=== PATIENT | male | born 1965 ===

== ENCOUNTER 2017-06-19 06:43 | Inpatient (IN) ==
[2017-06-19] MEDS ORDERED: SODIUM CHLORIDE 0.9% 1,000 ML IV PRN (07:10)
[2017-06-19 09:03] LABS: Basophils % 0.2 % (0.0-0.8); Eosinophils # 0.1 10*3/uL (0.0-0.87); Hematocrit 16.5 VOL% (42.0-52.0); Immature Granulocytes % 0.8 %; Lymphocytes # 1.2 10*3/uL (1.4-4.0); Lymphocytes % 10.5 % (21.2-54.2); Mean Corpuscular HGB Conc 31.5 GM/DL (32-36); Mean Corpuscular Hemoglobin 29 PG (27-34); Mean Corpuscular Volume 92.7 FL (87-102); Mean Platelet Volume 9.6 FL (9.6-12.0); Monocytes # 1.1 10*3/uL (0.11-0.8); Monocytes % 9.5 % (1.7-12.7); Neutrophils # 9.2 10*3/uL (1.4-7.4); Platelet Count 455 T/CUMM (130-400); Red Blood Count 1.78 MC/CUMM (3.8-5.5); Red Cell Distribution Width 14.6 % (9.3-17.3); White Blood Count 11.8 T/CUMM (4-12)
[2017-06-19 09:13] LABS: Hemoglobin 5.2 GM/DL (14.0-18.0)
[2017-06-19 09:43] LABS: Alanine Aminotransferase 96 U/L (16-61); Albumin 2.5 G/DL (3.4-5.0); Alkaline Phosphatase 143 U/L (45-117); Aspartate Amino Transferase 33 U/L (0-37); Bilirubin,Total < 0.39 MG/DL (0.2-1.0); Blood Urea Nitrogen 49 MG/DL (7-18); Calcium 7.6 MG/DL (8.5-10.1); Glucose 169 MG/DL (74-106); Sodium 136 MMOL/L (136-145); Total Protein 6.4 G/DL (6.4-8.3)
[2017-06-20] MEDS ORDERED: DEXTROSE 50% 25 GM/50 ML VIAL IV PRN (07:42)
[2017-06-20] MEDS ORDERED: GLUCAGON 1 MG VIAL IM PRN (07:42)
[2017-06-20] MEDS ORDERED: GLIMEPIRIDE 4 MG TABLET PO SCH (08:00)
[2017-06-20 08:15] LABS: Basophils % 0.4 % (0.0-0.8); Eosinophils # 0.2 10*3/uL (0.0-0.87); Eosinophils % 2.1 % (0.00-10.9); Hematocrit 27.2 VOL% (42.0-52.0); Immature Granulocytes Absolute 0.11 #; Lymphocytes % 9.4 % (21.2-54.2); Mean Corpuscular Hemoglobin 29 PG (27-34); Mean Corpuscular Volume 91.3 FL (87-102); Mean Platelet Volume 9.5 FL (9.6-12.0); Monocytes # 1.2 10*3/uL (0.11-0.8); Monocytes % 10.8 % (1.7-12.7); Neutrophils # 8.4 10*3/uL (1.4-7.4); Neutrophils % 76.3 % (38.7-73.9); Red Cell Distribution Width 14.5 % (9.3-17.3)
[2017-06-20 08:16] LABS: Red Blood Count 2.98 MC/CUMM (3.8-5.5)
[2017-06-20 08:17] LABS: Hemoglobin 8.7 GM/DL (14.0-18.0); Platelet Count 553 T/CUMM (130-400)
[2017-06-20 08:37] LABS: Albumin 2.7 G/DL (3.4-5.0); Bilirubin,Total 0.6 MG/DL (0.2-1.0); Calcium 8.2 MG/DL (8.5-10.1); Osmolality,Calculated 283.7 MOS/KG (273-304); Potassium 5.5 MMOL/L (3.5-5.1)
[2017-06-20] MEDS ORDERED: LIDOCAINE 1% 5 ML VIAL ONE (10:30)
[2017-06-20] MEDS ORDERED: PROPOFOL 200 MG/20 ML VIAL IV ONE (10:30)
[2017-06-20] MEDS: BISACODYL 5 MG TABLET PO SCH ×2 (10:49→18:02)
[2017-06-20] MEDS: INSULIN REGULAR 100 UNIT/ML SUBCUT SCH ×4 (10:50→20:51)
[2017-06-20] MEDS ORDERED: POLYETHYLENE GLYCOL 3350/ELECTROLYTES 4,000 ML BOTTLE PO ONE (18:00)
[2017-06-20] MEDS ORDERED: MAGNESIUM CITRATE 300 ML BOTTLE PO ONE (21:00)
[2017-06-21] MEDS: BISACODYL 5 MG TABLET PO SCH (01:46)
[2017-06-21 04:14] LABS: Basophils % 0.2 % (0.0-0.8); Eosinophils # 0.3 10*3/uL (0.0-0.87); Eosinophils % 2.3 % (0.00-10.9); Hematocrit 25.7 VOL% (42.0-52.0); Hemoglobin 8.3 GM/DL (14.0-18.0); Immature Granulocytes % 0.8 %; Immature Granulocytes Absolute 0.09 #; Lymphocytes # 1.2 10*3/uL (1.4-4.0); Lymphocytes % 10.3 % (21.2-54.2); Mean Corpuscular HGB Conc 32.3 GM/DL (32-36); Mean Corpuscular Hemoglobin 29 PG (27-34); Mean Corpuscular Volume 90.2 FL (87-102); Mean Platelet Volume 9.4 FL (9.6-12.0); Monocytes # 1.3 10*3/uL (0.11-0.8); Monocytes % 11.5 % (1.7-12.7); Neutrophils # 8.6 10*3/uL (1.4-7.4); Neutrophils % 74.9 % (38.7-73.9); Platelet Count 568 T/CUMM (130-400); Red Blood Count 2.85 MC/CUMM (3.8-5.5); Red Cell Distribution Width 14.1 % (9.3-17.3); White Blood Count 11.4 T/CUMM (4-12)
[2017-06-21 04:36] LABS: Albumin 2.6 G/DL (3.4-5.0); Bilirubin,Total 0.6 MG/DL (0.2-1.0); Calcium 7.6 MG/DL (8.5-10.1); Osmolality,Calculated 283.5 MOS/KG (273-304); Potassium 4.5 MMOL/L (3.5-5.1); Total Protein 6.5 G/DL (6.4-8.3)
[2017-06-21] MEDS: INSULIN REGULAR 100 UNIT/ML SUBCUT SCH ×4 (09:53→21:10)
[2017-06-21] MEDS ORDERED: LIDOCAINE 1% 5 ML VIAL ONE (12:00)
[2017-06-21] MEDS ORDERED: PROPOFOL 200 MG/20 ML VIAL IV ONE (12:00)
[2017-06-21 12:01] LABS: % Iron Saturation 8.3 % (18-50); Ferritin 622.9 ng/ml (26-388); Thyroid Stimulating Hormone 1.4 uIU/ml (0.358-3.74); Total Protein 6.2 G/DL (6.4-8.3)
[2017-06-21 14:12] LABS: Folate 18.9 NG/ML (5.4-24.0); Vitamin B12 308 PG/ML (211-911)
[2017-06-22 07:36] LABS: Total Protein (Chem) 6.2 G/DL (6.4-8.3)
[2017-06-22 07:50] LABS: Basophils % 0.3 % (0.0-0.8); Eosinophils # 0.3 10*3/uL (0.0-0.87); Eosinophils % 2.8 % (0.00-10.9); Hematocrit 23.8 VOL% (42.0-52.0); Immature Granulocytes % 0.7 %; Immature Granulocytes Absolute 0.07 #; Lymphocytes # 1.1 10*3/uL (1.4-4.0); Lymphocytes % 11.4 % (21.2-54.2); Mean Corpuscular HGB Conc 33.6 GM/DL (32-36); Mean Corpuscular Hemoglobin 29 PG (27-34); Mean Corpuscular Volume 87.2 FL (87-102); Monocytes # 1.2 10*3/uL (0.11-0.8); Monocytes % 11.7 % (1.7-12.7); Neutrophils # 7.3 10*3/uL (1.4-7.4); Neutrophils % 73.1 % (38.7-73.9); Platelet Count 588 T/CUMM (130-400); Red Blood Count 2.73 MC/CUMM (3.8-5.5); Red Cell Distribution Width 14.4 % (9.3-17.3)
[2017-06-22 08:08] LABS: Albumin 2.4 G/DL (3.4-5.0); Bilirubin,Total 0.7 MG/DL (0.2-1.0); Calcium 7.8 MG/DL (8.5-10.1); Osmolality,Calculated 284.4 MOS/KG (273-304); Potassium 4.5 MMOL/L (3.5-5.1)
[2017-06-22] MEDS: INSULIN REGULAR 100 UNIT/ML SUBCUT SCH ×2 (09:06→17:26)
[2017-06-22 10:08] LABS: Hemoglobin A1 (Alkaline) 97.2 % (96.5-98.5); Hemoglobin A2 (Alkaline) 2.8 % (1.5-3.5)
[2017-06-22 10:29] LABS: Albumin (SPE) Rel % 48.6 %; Alpha 1 (SPE) 0.4 G/DL (0.1-0.4); Alpha 2 (SPE) 0.7 G/DL (0.4-1.0); Beta (SPE) 0.8 G/DL (0.5-1.1); Beta (SPE) Rel % 12.5 %; Gamma (SPE) 1.3 G/DL (0.7-1.7); Gamma (SPE) Rel % 20.9 %
[2017-06-22 12:10] VITALS: BP 154/74
[2017-06-22 16:00] LABS: Immuno Free Light Chain Lambda 7.46 MG/DL (0.57-2.63); Immuno Free Light Chain Ratio 0.92 MG/DL (0.26-1.65)
== END 2017-06-22 16:56 | disposition home or self-care (01) | DRG 812 ==
LOC: N.2E 08:35

== ENCOUNTER 2021-01-24 13:39 | Inpatient (IN) ==
[2021-01-24] MEDS ORDERED: INFLUENZA VIRUS VACCINE 0.5 ML SYRINGE IM ONE (17:53)
[2021-01-24] MEDS ORDERED: GLUCAGON 1 MG VIAL IM PRN (17:58)
[2021-01-24] MEDS ORDERED: hydrALAZINE 20 MG/1 ML VIAL IV PRN (17:58)
[2021-01-24] MEDS ORDERED: DEXTROSE 50% 25 GM/50 ML SYRINGE IV PRN (18:08)
[2021-01-24] MEDS ORDERED: SODIUM CHLORIDE 0.9% 1,000 ML IV PRN (18:09)
[2021-01-24] MEDS: SODIUM BICARB INJ 50 MEQ in SODIUM CHLORIDE 0.45% 1,000 ML IV SCH (18:30)
[2021-01-24 19:14] LABS: Basophils % 0.1 % (0.0-0.8); Eosinophils % 0.1 % (0.00-10.9); Immature Granulocytes % 1.1 %; Immature Granulocytes Absolute 0.14 #; Lymphocytes # 0.6 10*3/uL (1.4-4.0); Lymphocytes % 4.5 % (21.2-54.2); Mean Corpuscular HGB Conc 33.2 GM/DL (32-36); Mean Corpuscular Volume 91.3 FL (87-102); Mean Platelet Volume 9.9 FL (9.6-12.0); Monocytes % 6.6 % (1.7-12.7); Neutrophils % 87.6 % (38.7-73.9); Platelet Count 212 T/CUMM (130-400); Red Blood Count 2.08 MC/CUMM (3.8-5.5); Red Cell Distribution Width 15.8 % (9.3-17.3); White Blood Count 12.6 T/CUMM (4-12)
[2021-01-24 19:16] LABS: Hemoglobin 6.3 GM/DL (14.0-18.0)
[2021-01-24 19:34] LABS: Osmolality,Calculated 324.2 MOS/KG (273-304); Potassium 5.2 MMOL/L (3.5-5.1)
[2021-01-24 19:35] LABS: Calcium 5.4 MG/DL (8.5-10.1)
[2021-01-24 20:00] LABS: Folate 13.43 NG/ML (5.38-24.0); Vitamin B12 1175 PG/ML (211-911)
[2021-01-24] MEDS ORDERED: CALCIUM GLUCONATE 2,000 MG in SODIUM CHLORIDE 0.9% 100 ML IV ONE (20:00)
[2021-01-24 20:03] LABS: Bacteria,Urine Moderate /HPF (Few); Bilirubin,Urine Negative (Negative); Blood, Urine Small mg/dL (Negative); Glucose,Urine (UA) Negative (Negative); Ketones,Urine Negative (Negative); Nitrite,Urine Negative (Negative); Protein,Urine >=500 MG/DL; RBC,Urine 7 /HPF (0-4); Urine Appearance CLOUDY (Clear); Urine Color Yellow (Yellow); Urine Urobilinogen < 2.0 EU/DL (0.2-1.0)
[2021-01-24 20:22] LABS: Sedimentation Rate-Westergren 83 MM/HR (0-20)
[2021-01-24 20:28] LABS: Band Neutrophils 2 % (0-10); Lymphocytes 6 % (20-55); Metamyelocytes 1 %; Segmented Neutrophils 87 % (50-85); Total Cells Counted 100
[2021-01-24 20:29] LABS: Acanthocytes 1+; Anisocytosis 1+; Hypochromasia 1+; Poikilocytosis 1+
[2021-01-24 20:30] LABS: Platelet Estimate Decreased
[2021-01-24] MEDS: ATORVASTATIN 40 MG TABLET PO SCH (20:36)
[2021-01-24] MEDS: SODIUM BICARBONATE 650 MG TABLET PO SCH (20:36)
[2021-01-24] MEDS: FERROUS SULFATE 325 MG TABLET PO SCH (20:36)
[2021-01-24] MEDS: CALCIUM (CARBONATE) 500 MG TABLET PO SCH (20:36)
[2021-01-24] MEDS: INSULIN LISPRO 100 UNIT/ML SUBCUT SCH (21:14)
[2021-01-25 01:58] LABS: Basophils % 0.1 % (0.0-0.8); Eosinophils % 0.1 % (0.00-10.9); Hematocrit 22.3 VOL% (42.0-52.0); Hematocrit 22.7 VOL% (42.0-52.0); Hemoglobin 7.5 GM/DL (14.0-18.0); Immature Granulocytes % 0.8 %; Immature Granulocytes Absolute 0.11 #; Lymphocytes # 0.4 10*3/uL (1.4-4.0); Lymphocytes % 2.8 % (21.2-54.2); Mean Platelet Volume 9.2 FL (9.6-12.0); Monocytes % 6.2 % (1.7-12.7); NRBC # 0.02 10*3/uL; Platelet Count 192 T/CUMM (130-400); Red Blood Count 2.55 MC/CUMM (3.8-5.5); Red Cell Distribution Width 15.8 % (9.3-17.3); White Blood Count 13.4 T/CUMM (4-12)
[2021-01-25 02:08] LABS: INR 1.1; PT Patient Result 12.4 SECS (10.5-12.0)
[2021-01-25 02:31] LABS: Osmolality,Calculated 324.8 MOS/KG (273-304); Potassium 4.4 MMOL/L (3.5-5.1); Risk Ratio 5.14; Thyroid Stimulating Hormone 2.62 uIU/ml (0.358-3.74); VLDL Cholesterol 68.6 MG/DL
[2021-01-25 02:33] LABS: Calcium 5.3 MG/DL (8.5-10.1)
[2021-01-25 05:43] LABS: Parathyroid Hormone Intact 591.3 PG/ML (18.4-80.1)
[2021-01-25] MEDS: INSULIN LISPRO 100 UNIT/ML SUBCUT SCH ×4 (07:45→23:17)
[2021-01-25] MEDS: MULTIVITAMIN (CENTRUM) TABLET PO SCH (08:44)
[2021-01-25] MEDS: FERROUS SULFATE 325 MG TABLET PO SCH ×2 (08:44→16:52)
[2021-01-25] MEDS: amLODIPine 10 MG TABLET PO SCH (08:45)
[2021-01-25] MEDS: CALCIUM (CARBONATE) 500 MG TABLET PO SCH ×2 (08:45→16:52)
[2021-01-25] MEDS: PANTOPRAZOLE 40 MG TABLET PO SCH (08:45)
[2021-01-25] MEDS: SODIUM BICARBONATE 650 MG TABLET PO SCH ×2 (08:45→21:31)
[2021-01-25] MEDS ORDERED: CLINDAMYCIN INJ 900 MG/50 ML PREMIX IV ONE (09:03)
[2021-01-25] MEDS ORDERED: TISSUE ADHESIVE 1 EACH APPLICATOR TOP ONE (09:19)
[2021-01-25] MEDS ORDERED: HEPARIN 5,000 UNIT/1 ML VIAL ONE (09:19)
[2021-01-25] MEDS ORDERED: BUPIVACAINE MPF 0.25% 30 ML VIAL ONE (09:19)
[2021-01-25] MEDS ORDERED: LIDOCAINE 1%/EPI INJ 20 ML VIAL ONE (09:19)
[2021-01-25] MEDS ORDERED: KETAMINE 500 MG/10 ML VIAL ONE (09:22)
[2021-01-25] MEDS ORDERED: fentaNYL 100 MCG/2 ML VIAL ONE (09:22)
[2021-01-25] MEDS ORDERED: MIDAZOLAM 2 MG/2 ML VIAL ONE (09:22)
[2021-01-25] MEDS ORDERED: LIDOCAINE 2% 5 ML VIAL ONE (09:22)
[2021-01-25] MEDS ORDERED: propofoL 200 MG/20 ML VIAL IV ONE (09:22)
[2021-01-25 09:57] LABS: Hemoglobin A1 (Alkaline) 97.9 % (96.5-98.5); Hemoglobin A2 (Alkaline) 2.1 % (1.5-3.5)
[2021-01-25] MEDS ORDERED: ePHEDrine 50 MG/ML VIAL ONE (10:10)
[2021-01-25] MEDS: SODIUM BICARB INJ 50 MEQ in SODIUM CHLORIDE 0.45% 1,000 ML IV SCH (12:13)
[2021-01-25] MEDS ORDERED: EPOETIN ALFA-EPBX 10,000 UNIT/ML VIAL IV PRN (12:37)
[2021-01-25 13:01] LABS: % Iron Saturation 47.3 % (18-50)
[2021-01-25 13:46] LABS: Hepatitis B Core IgM Quant 1.03 Index; Hepatitis B Surface Ag Quant < 0.10 Index; Hepatitis B Surface Ag Result Non-Reactive (NonReactive); Hepatitis C Virus Ab Result Non-Reactive (NonReactive)
[2021-01-25] MEDS ORDERED: HEPARIN 10,000 UNIT/10 ML VIAL IV ONE (18:30)
[2021-01-25] MEDS: ATORVASTATIN 40 MG TABLET PO SCH (21:31)
[2021-01-26] MEDS: ACETAMINOPHEN 325 MG TABLET PO PRN ×2 (00:09→05:47)
[2021-01-26] MEDS: SODIUM BICARB INJ 50 MEQ in SODIUM CHLORIDE 0.45% 1,000 ML IV SCH ×2 (01:26→05:47)
[2021-01-26 05:20] LABS: Basophils % 0.1 % (0.0-0.8); Eosinophils % 0.2 % (0.00-10.9); Hematocrit 19.9 VOL% (42.0-52.0); Immature Granulocytes % 0.8 %; Immature Granulocytes Absolute 0.12 #; Lymphocytes # 0.8 10*3/uL (1.4-4.0); Lymphocytes % 4.9 % (21.2-54.2); Mean Corpuscular HGB Conc 35.2 GM/DL (32-36); Mean Corpuscular Volume 87.7 FL (87-102); Mean Platelet Volume 10.6 FL (9.6-12.0); Monocytes % 7.3 % (1.7-12.7); Neutrophils % 86.7 % (38.7-73.9); Platelet Count 157 T/CUMM (130-400); Red Blood Count 2.27 MC/CUMM (3.8-5.5); Red Cell Distribution Width 15.3 % (9.3-17.3); White Blood Count 15.7 T/CUMM (4-12)
[2021-01-26 05:42] LABS: Potassium 2.9 MMOL/L (3.5-5.1)
[2021-01-26 05:45] LABS: Lymphocytes 4 % (20-55); Microcytosis 1+; Platelet Estimate Normal; Segmented Neutrophils 93 % (50-85); Total Cells Counted 100
[2021-01-26 05:46] LABS: Albumin 2.5 G/DL (3.4-5.0); Bilirubin,Direct 0.14 MG/DL (0.0-0.20); Bilirubin,Indirect 0.9 MG/DL (0.0-1.0); Total Protein 5.8 G/DL (6.4-8.2)
[2021-01-26 05:47] LABS: Calcium 5.5 MG/DL (8.5-10.1); Target Cells Slight
[2021-01-26] MEDS ORDERED: CALCIUM GLUCONATE 1,000 MG in SODIUM CHLORIDE 0.9% 100 ML IV ONE (06:30)
[2021-01-26] MEDS: POTASSIUM CHLORIDE RIDER 10 MEQ/100 ML PREMIX IV PRN ×5 (06:32→22:30)
[2021-01-26] MEDS: SODIUM BICARBONATE 650 MG TABLET PO SCH ×2 (08:32→21:20)
[2021-01-26] MEDS: FERROUS SULFATE 325 MG TABLET PO SCH ×2 (08:33→16:06)
[2021-01-26] MEDS: amLODIPine 10 MG TABLET PO SCH (08:33)
[2021-01-26] MEDS: MULTIVITAMIN (CENTRUM) TABLET PO SCH (08:33)
[2021-01-26] MEDS: PANTOPRAZOLE 40 MG TABLET PO SCH (08:33)
[2021-01-26] MEDS: CALCIUM (CARBONATE) 500 MG TABLET PO SCH ×3 (08:33→16:07)
[2021-01-26] MEDS ORDERED: ERGOCALCIFEROL 50,000 UNIT CAPSULE PO SCH (10:00)
[2021-01-26] MEDS ORDERED: CIPROFLOXACIN INJ 400 MG/200 ML PREMIX IV ONE (10:00)
[2021-01-26] MEDS: INSULIN LISPRO 100 UNIT/ML SUBCUT SCH (11:58)
[2021-01-26] MEDS ORDERED: HEPARIN 10,000 UNIT/10 ML VIAL IV SCH (12:30)
[2021-01-26] MEDS: ATORVASTATIN 40 MG TABLET PO SCH (21:20)
[2021-01-27] MEDS: ONDANSETRON 4 MG/2 ML VIAL IV PRN ×2 (00:12→04:41)
[2021-01-27] MEDS: POTASSIUM CHLORIDE RIDER 10 MEQ/100 ML PREMIX IV PRN (03:09)
[2021-01-27 05:17] LABS: Basophils % 0.1 % (0.0-0.8); Eosinophils # 0.3 10*3/uL (0.0-0.87); Eosinophils % 1.7 % (0.00-10.9); Hematocrit 23.1 VOL% (42.0-52.0); Hemoglobin 7.6 GM/DL (14.0-18.0); Immature Granulocytes % 0.6 %; Immature Granulocytes Absolute 0.09 #; Lymphocytes # 0.5 10*3/uL (1.4-4.0); Lymphocytes % 2.9 % (21.2-54.2); Mean Corpuscular HGB Conc 32.9 GM/DL (32-36); Mean Corpuscular Volume 90.2 FL (87-102); Mean Platelet Volume 10.6 FL (9.6-12.0); Monocytes % 6.4 % (1.7-12.7); Neutrophils % 88.3 % (38.7-73.9); Platelet Count 161 T/CUMM (130-400); Red Blood Count 2.56 MC/CUMM (3.8-5.5); Red Cell Distribution Width 15.7 % (9.3-17.3); White Blood Count 16.1 T/CUMM (4-12)
[2021-01-27 05:35] LABS: Calcium 6.5 MG/DL (8.5-10.1); Osmolality,Calculated 285.1 MOS/KG (273-304); Potassium 3.8 MMOL/L (3.5-5.1)
[2021-01-27 05:42] LABS: Band Neutrophils 2 % (0-10); Eosinophils 2 % (0-10); Hypochromasia 1+; Lymphocytes 3 % (20-55); Platelet Estimate Normal; Segmented Neutrophils 89 % (50-85); Total Cells Counted 100
[2021-01-27] MEDS ORDERED: SODIUM CHLORIDE 0.9% 1,000 ML IV PRN (08:03)
[2021-01-27] MEDS: SODIUM BICARBONATE 650 MG TABLET PO SCH (09:22)
[2021-01-27] MEDS: PANTOPRAZOLE 40 MG TABLET PO SCH (09:23)
[2021-01-27] MEDS: FERROUS SULFATE 325 MG TABLET PO SCH ×2 (09:23→17:31)
[2021-01-27] MEDS: CALCIUM (CARBONATE) 500 MG TABLET PO SCH ×3 (09:23→17:31)
[2021-01-27] MEDS: amLODIPine 10 MG TABLET PO SCH (09:23)
[2021-01-27] MEDS: MULTIVITAMIN (CENTRUM) TABLET PO SCH (09:23)
[2021-01-27] MEDS ORDERED: CIPROFLOXACIN INJ 400 MG/200 ML PREMIX IV SCH (17:00)
[2021-01-27 17:41] VITALS: BP 129/66
[2021-01-27] MEDS ORDERED: OMEGA 3 ACID ETHYL ESTERS 1 GM CAPSULE PO SCH (21:00)
== END 2021-01-27 18:23 | disposition home or self-care (01) | DRG 674 ==
LOC: N.3E → SUATTDRO 18:02
PROVIDERS: ADMIT Internal Medicine; ATTEND Internal Medicine